=== PATIENT | male | born 1970 | race Caucasian/White ===

== ENCOUNTER 2018-09-05 09:22 | Day surgery (SDC) | payer OTHER ==
[~2018-09-05 09:22] MED LIST: ACETAMINOPHEN 1,000 MG/100 ML BTL IV ONE
[2018-09-05] MEDS ORDERED: MIDAZOLAM HCL 2MG/2ML VIAL IV ONE (09:23)
[2018-09-05] MEDS ORDERED: HYDROCODONE/APAP 5/325MG TABLET PO ONE (09:23)
[2018-09-05] MEDS ORDERED: CITRIC ACID/SODIUM CITRATE 30 ML SOLUTION (BICITRA) PO ONE (09:23)
[2018-09-05] MEDS ORDERED: LIDOCAINE 2% MDV (20MG/ML) 20ML VIAL IV ONE (09:23)
[2018-09-05] MEDS ORDERED: KETOROLAC 30 MG/ML VIAL IVP ONE (09:23)
[2018-09-05] MEDS ORDERED: FENTANYL PF 100MCG/2ML VIAL IV ONE (09:23)
[2018-09-05] MEDS ORDERED: ONDANSETRON HCL IV 4 MG/2 ML VIAL IVP ONE (09:23)
[2018-09-05] MEDS ORDERED: SEVOFLURANE 250 ML INH ONE (09:23)
[2018-09-05] MEDS ORDERED: PROPOFOL 10 MG/ML VIAL IV ONE (09:23)
[2018-09-05] MEDS ORDERED: BUPIVACAINE 0.25% W/EPI MPF 30ML VIAL IVP ONE (09:23)
--- NOTE | 2018-09-06 08:00 | Operative Note ---
DATE OF SURGERY: 09/05/2018 Surgeon: Ben Younger DO PREOPERATIVE DIAGNOSES: 1. Bucket-handle tear of the medial meniscus of the left knee. 2. Chondromalacia of the left knee. POSTOPERATIVE DIAGNOSES: 1. Bucket-handle tear of the medial meniscus of the left knee. 2. Chondromalacia of medial femoral condyle, trochlea, and patella of left knee. OPERATION: 1. Arthroscopic partial medial meniscectomy, left knee. 2. Arthroscopic chondroplasty medial femoral condyle, trochlea, and patella of left knee. DESCRIPTION OF PROCEDURE: This 47-year-old male was taken to the operating room and placed in the supine position on the operating room table where general anesthesia was induced. The left lower extremity was elevated. It was exsanguinated and the tourniquet inflated to 300 mmHg. Arthroscopic knee ríos applied. Left knee prepped with Hibiclens and draped in the usual sterile fashion. An inferolateral portal was established for the 4 mm arthroscope, and initial evaluation of the joint demonstrated grade 3 chondromalacia of the patellofemoral articulation involving mostly the median ridge of the patella but it did extend into both the medial and lateral facets. Grade 3 changes also noted on the trochlea with some small flaps of articular cartilage being noted at the periphery. Utilizing the rotating shaver, the loose fragments of articular cartilage were shaved with the rotating shaver. We then directed our attention to the medial compartment, and probing of the medial meniscus demonstrated a bucket-handle tear of the medial meniscus. It was not displaced at the time of the arthroscopic surgery. We felt that this tear was a multi-planar tear and not a repairable tear. We detached the posterior attachment and then the anterior attachment and removed the fragment of meniscus. Subsequently, the rim of the meniscus was further smoothed with the basket forceps and rotating shaver. Further trimming was done from the lateral approach to a smoothed contoured surface. There was grade 2 chondromalacia noted throughout the entire weightbearing surface of the medial femoral condyle with some loose fragments of articular cartilage being present there as well, and chondroplasty was performed. The intracondylar notch was examined and found to be normal. The lateral compartment was entered, and the lateral compartment did not show any significant findings, just some superficial flaking of the inner rim of the meniscus. This was removed but did not constitute a meniscectomy in any way. The wound was irrigated and suctioned. The instruments were removed. The portals infiltrated with 0.25% Marcaine with epinephrine. The tourniquet and knee ríos released. Sterile dressings were applied. The patient taken to the recovery room in satisfactory condition. GROSS PATHOLOGY: This patient demonstrated a bucket-handle tear of the medial meniscus with grade 3 chondromalacia of the patellofemoral joint as well as grade 2 chondromalacia of the medial femoral condyle as described above. CC: DO PETER Calle
== END 2018-09-05 12:20 | disposition home or self-care (01) ==
LOC: SUR 09:22
PROVIDERS: ATTEND Orthopaedic Surgery
DX: S83.212A Bucket-handle tear of medial meniscus, current injury, left knee, initial encounter (principal); M94.262 Chondromalacia, left knee; M22.42 Chondromalacia patellae, left knee; I10 Essential (primary) hypertension
CPT/HCPCS: 29881; 01400; J1885; J2405; J3010